=== PATIENT | male | born 1970 | race American Indian/Alaskan Native ===

== ENCOUNTER 2019-08-28 17:50 | Emergency (ER) | payer SELFPAY ==
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
[2019-08-28 18:09] VITALS: BP 120/83
== END 2019-08-28 18:25 | disposition left against medical advice (07) ==
LOC: ED 17:50
DX: S00.511D Abrasion of lip, subsequent encounter (principal); F17.200 Nicotine dependence, unspecified, uncomplicated; Z79.899 Other long term (current) drug therapy; Z98.890 Other specified postprocedural states; Z91.012 Allergy to eggs; Z91.013 Allergy to seafood; X58.XXXD Exposure to other specified factors, subsequent encounter

== ENCOUNTER 2020-12-29 12:16 | Emergency (ER) | payer SELFPAY ==
[2020-12-29] MEDS ORDERED: HYDROcodone/ACETAMINOPHEN 10-325MG TAB PO ONE (12:27)
[2020-12-29 12:35] VITALS: BP 113/80
--- NOTE | 2020-12-29 13:24 | XRay Report ---
LEFT KNEE 3 VIEW(S) INDICATION / CLINICAL INFORMATION: left knee pain s/p fall COMPARISON: None available. FINDINGS: BONES / JOINT(S): No acute fracture or subluxation. No significant arthritis. Moderate joint effusion in the suprapatellar recess. SOFT TISSUES: Mild anterior soft tissue swelling. ADDITIONAL FINDINGS: None. Signer Name: Darren Mejia MD Signed: 12/29/2020 1:20 PM Workstation Name: [employer] [id number]
--- NOTE | 2020-12-29 13:25 | XRay Report ---
LUMBAR SPINE 2 VIEWS INDICATION / CLINICAL INFORMATION: back pain s/p fall--add pelvis please. COMPARISON: None available. FINDINGS: VERTEBRAE: No acute fracture. No significant malalignment. DISC SPACES / FACET JOINTS:No significant abnormality. PARASPINAL SOFT TISSUES:No significant abnormality. ADDITIONAL FINDINGS: None. Signer Name: Darren Mejia MD Signed: 12/29/2020 1:21 PM Workstation Name: [employer] [id number]
--- NOTE | 2020-12-29 13:26 | XRay Report ---
RIGHT HIP 2 VIEW(S) INDICATION / CLINICAL INFORMATION: hip pain s/p fall COMPARISON: None available. FINDINGS: BONES / JOINT(S): No acute fracture or subluxation. No significant arthritis. SOFT TISSUES: No significant abnormality. ADDITIONAL FINDINGS: None. Signer Name: Darren Mejia MD Signed: 12/29/2020 1:22 PM Workstation Name: [employer] [id number]
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
== END 2020-12-29 14:16 | disposition home or self-care (01) ==
LOC: ED 12:16
DX: S89.92XA Unspecified injury of left lower leg, initial encounter (principal); S79.911A Unspecified injury of right hip, initial encounter; F17.200 Nicotine dependence, unspecified, uncomplicated; Z72.89 Other problems related to lifestyle; Z91.012 Allergy to eggs; Z91.013 Allergy to seafood; Z91.018 Allergy to other foods; Z79.899 Other long term (current) drug therapy; W00.0XXA Fall on same level due to ice and snow, initial encounter; Y93.89 Activity, other specified; Y92.89 Other specified places as the place of occurrence of the external cause; Y99.8 Other external cause status
CPT/HCPCS: 72100; 99283

== ENCOUNTER 2021-03-17 10:11 | Emergency (ER) | payer SELFPAY ==
[2021-03-17 10:23] VITALS: BP 112/64
== END 2021-03-17 19:15 | disposition left against medical advice (07) ==
LOC: ED 10:11
DX: Z77.098 Contact with and (suspected) exposure to other hazardous, chiefly nonmedicinal, chemicals (principal); Z53.21 Procedure and treatment not carried out due to patient leaving prior to being seen by health care provider

== ENCOUNTER 2021-05-17 21:14 | Emergency (ER) | payer SELFPAY ==
[2021-05-17] MEDS ORDERED: IBUPROFEN 400 MG TAB PO ONE (23:01)
[2021-05-17] MEDS ORDERED: ACETAMINOPHEN 325 MG TAB PO ONE (23:01)
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
--- NOTE | 2021-05-17 23:46 | XRay Report ---
LEFT KNEE 3 VIEWS INDICATION / CLINICAL INFORMATION: LT KNEE INJURY COMPARISON: 12/29/2020 FINDINGS: BONES / JOINT(S): No acute fracture or subluxation. No significant arthritis. SOFT TISSUES: Moderate to large joint effusion is noted. This is similar to the prior. ADDITIONAL FINDINGS: None. Signer Name: River Tinajero MD Signed: 05/17/2021 11:42 PM Workstation Name: [id number]
[2021-05-18 03:43] VITALS: BP 122/78
== END 2021-05-18 03:43 | disposition home or self-care (01) ==
LOC: ED 21:14
DX: M25.562 Pain in left knee (principal); M25.462 Effusion, left knee; F17.200 Nicotine dependence, unspecified, uncomplicated; Z98.890 Other specified postprocedural states; Z91.012 Allergy to eggs; Z91.013 Allergy to seafood; Z88.8 Allergy status to other drugs, medicaments and biological substances
CPT/HCPCS: 99284